=== PATIENT | female | born 1995 | race Hispanic/Latino ===

== ENCOUNTER 2017-07-09 12:10 | Emergency (ER) | payer MEDICAID, OTHER ==
[2017-07-09 13:32] LABS: #Basophils 0.1 thou/uL (0.0-0.2); #Eosinphils 0.2 thou/uL (0.0-0.7); #Lymphocytes 1.7 thou/uL (1.20-3.40); #Monocytes 0.6 thou/uL (0.11-0.59); #Neutrophils 11.1 thou/uL (1.40-6.50); %Basophils 0.4 % (0.0-1.0); %Eosinophils 1.6 % (0.0-10.0); %Lymphocytes 12.3 % (28.0-48.0); %Monocytes 4.4 % (0.0-4.0); %Neutrophils 81.4 % (31.0-61.0); Hemoglobin 11.3 g/dL (12.0-16.0); Mean Corpuscular HGB CONC 32.5 g/dL (32.0-36.0); Mean Corpuscular Hemoglobin 25.8 pg (25.0-35.0); Mean Corpuscular Volume 79.4 fl (77.0-87.0); Mean Platelet Volume 6.6 fL (7.4-10.4); Platelet Count 281 thou/uL (130-400); RBC Distribution Width 13.8 % (11.5-14.5); Red Blood Cell (RBC) Count 4.38 mill/uL (4.00-5.20); White Blood Cell (WBC) Count 13.7 thou/uL (4.8-10.8)
[2017-07-09 13:39] LABS: Prothrombin Time 13.4 SEC (12.0-14.7)
[2017-07-09 13:40] LABS: PTT 29.5 SEC (22.9-36.1)
[2017-07-09 13:50] LABS: ALT (SGPT) 14 U/L (8-55); AST (SGOT) 14 U/L (5-34); Albumin 3.5 g/dL (3.5-5.0); Alkaline Phosphatase 108 U/L (40-150); Anion Gap 17 mmol/L (10-20); BUN (Urea Nitrogen) 9 mg/dL (7.0-18.7); Bilirubin, Total 0.5 mg/dL (0.2-1.2); Calc. Creatinine Clearance 0 mL/min (70-130); Calcium 8.9 mg/dL (7.8-10.44); Carbon Dioxide 19 mmol/L (22-29); Chloride 110 mmol/L (98-107); Estimated GFR-MDRD Greater than 90; Globulin 3.5 g/dL (2.4-3.5); Glucose 81 mg/dL (70-105); Potassium 3.9 mmol/L (3.5-5.1); Sodium 142 mmol/L (136-145)
--- NOTE | 2017-07-09 15:00 | ULT ---
PELVIC ULTRASOUND: 07/09/17 HISTORY: Passing large clots. Bleeding. bleeding. Delivered on 06/29/17. TECHNIQUE: Transabdominal imaging of the pelvis is performed. Endovaginal imaging is also performed. Ovaries are interrogated with Greenfield scale, color flow, Doppler imaging, and spectral waveform analysis. FINDINGS: Uterus is identified, measuring 12.9 x 7.9 x 10.3 cm. There is a thickened, heterogeneous endometrium , with a diameter of 2.7 cm. There is a small amount of free fluid in the pelvis. Suboptimal evaluation of both ovaries. Right ovary appears to measure 2.5 x 3.3 x 1.9 cm. Left ovary measures 3.1 x 1.5 x 1.1 cm. Ovarian Doppler: Vascular flow to both ovaries. IMPRESSION: 1. Limited evaluation of the ovaries due to enlarged uterus. 2. Enlarged uterus compatible with state. Heterogeneous endometrium, which is thickened. Findings may be due to blood products. Retained products of conception cannot be excluded. Correlate clinically. POS: AGATA
== END 2017-07-09 15:09 | disposition home or self-care (01) ==
LOC: MADERS 12:10
DX: O72.2 Delayed and secondary postpartum hemorrhage (principal); Z79.899 Other long term (current) drug therapy
CPT/HCPCS: 36415; 76856; 80053; 85025; 85610; 85730